=== PATIENT | male | born 1980 | race Caucasian/White ===

== ENCOUNTER 2017-01-11 17:58 | Emergency (ER) | payer MEDICAID, OTHER ==
[2017-01-11] MEDS ORDERED: chlordiazePOXIDE 25 MG CAP PO ONE (18:22)
--- NOTE | 2017-01-11 18:22 | EDPHY ---
H & P Stated Complaint: CI-last drink 0200, whiskey and beer, wants detox. Source: Patient Exam Limitations: No limitations - Personal History Current Tetanus/Diphtheria Vaccine: Unsure Current Tetanus Diphtheria and Acellular Pertussis (TDAP): Unsure - Medical/Surgical History Hx Asthma: No Hx Chronic Respiratory Disease: No Hx Diabetes: No Hx Cardiac Disease: No Hx Renal Disease: No Hx Cirrhosis: No Hx Alcoholism: Yes Hx HIV/AIDS: No Hx Splenectomy or Spleen Trauma: No Other PMH: [facility] Ena Singh. Hep C-treated 2013. Time Seen by Provider: 01/11/17 18:21 HPI/ROS: CHIEF COMPLAINT: requesting detox HISTORY OF PRESENT ILLNESS: 36-year-old male presents emergency department requesting detox from alcohol. Patient reports his last drink was at 2:00 a.m. he states he lives in [place] and took a bus to [place] while intoxicated. He states he drinks " a lot " of whiskey daily. Pt denies drug use. He reports feels nauseated and shaky. Patient denies history of alcohol withdrawal seizures. He reports he has been drinking for 16 years, longest time of sobriety is 1.5 months. Patient denies chest pain or shortness of breath. REVIEW OF SYSTEMS: A comprehensive 10 point review of systems is otherwise negative aside from elements mentioned in the history of present illness. (Latonya Harvey) - Physical Exam Exam: Physical Exam Gen: Alert and Oriented, NAD HEENT: PERRL, moist mucous membranes NECK: no meningismus CV: Tachycardic rate and regular rhythm PULM: CTAB, no wheezes ABDOMEN: soft, non tender to palpation, BS present BACK: No CVA tenderness NEURO: Neurologically grossly intact, no tongue fasciculations, no tremors, normal gait EXTREMITIES: normal appearing SKIN: no rash or break in skin on exposed skin PSYCH: answers questions appropriately. (Latonya Harvey) Constitutional: Initial Vital Signs Temperature (C) 36.3 C 01/11/17 18:01 Heart Rate 112 H 01/11/17 18:01 Respiratory Rate 18 01/11/17 18:01 Blood Pressure 170/108 H 01/11/17 18:01 O2 Sat (%) 96 01/11/17 18:01 O2 Delivery Mode Room Air Allergies/Adverse Reactions: No Known Allergies Allergy (Unverified 01/11/17 18:05) Home Medications: Medication Instructions Recorded Susan 01/11/17 Aicha 01/11/17 Medical Decision Making ED Course/Re-evaluation: 36-year-old male presents requesting detox for alcohol. Last drink was 16 hours ago. Patient reports feeling nauseous and tremulous. No history of alcohol withdrawal seizures. Patient has no evidence of delirium tremens, he has a normal gait. He was given 50 mg of Librium in the emergency department and will be sent to the [facility] with a Librium prepack. ( Latonya Harvey) - Data Points Medications Given: Discontinued Medications Chlordiazepoxide (Librium 25 Mg Prepack#6) 1 btl TAKEHOME EDNOW ONE Stop: 01/11/17 19:01 Last Admin: 01/11/17 19:19 Dose: 1 btl Chlordiazepoxide HCl (Librium) 50 mg PO EDNOW ONE Stop: 01/11/17 18:23 Last Admin: 01/11/17 18:28 Dose: 50 mg Departure - Departure Disposition: Home, Routine, Self-Care Clinical Impression: Alcohol dependence Qualifiers: Substance use status: uncomplicated Qualified Code(s): F10.20 - Alcohol dependence, uncomplicated Condition: Good Instructions: Chlordiazepoxide (By mouth), Alcohol Withdrawal (ED), Alcohol Dependence (ED) Additional Instructions: Go to the addiction recovery center. Referrals: [facility],. [Clinic] - Follow Up Only If Needed
[2017-01-11] MEDS ORDERED: CHLORDIAZEPOXIDE 25MG PREPK#6 BTL TAKEHOME ONE (19:00)
[2017-01-11 19:15] VITALS: BP 164/101; PULSE 93; RESP 16; TEMP 97.7; O2SAT 95
== END 2017-01-11 19:26 | disposition home or self-care (01) ==
DX: F10.20 Alcohol dependence, uncomplicated (principal)

== ENCOUNTER 2017-04-26 22:22 | Emergency (ER) | payer MEDICAID, OTHER ==
[2017-04-26 22:33] VITALS: TEMP 97.9
[2017-04-26] MEDS ORDERED: LORazepam 2 MG/ML INJ IVP ONE (22:49)
[2017-04-26] MEDS ORDERED: NS 1,000 ML IV ONE (22:49)
--- NOTE | 2017-04-26 22:49 | EDPHY ---
H & P Stated Complaint: Alcohol Withdrawal- came from [facility]. Tremors, chills. HPI/ROS: HPI CHIEF COMPLAINT: Alcohol withdrawal HISTORY OF PRESENT ILLNESS: This patient very pleasant 36-year-old male, presents emergency room from the [facility], and states that he went there to detox from alcohol his last drink was at noon today. Patient reports to me that he wants to go through detox. He was sent here to receive medications. Upon arrival he is noted to be tachycardic in the 130s and slightly tremulous. He is not hallucinating. He has never had a seizure. He denies any focal complaints. Past Medical History: Polysubstance abuse Past Surgical History: No recent surgery Social History: Daily alcohol use, cocaine and methamphetamine Family History: Noncontributory ROS REVIEW OF SYSTEMS: A comprehensive 10 point review of systems is otherwise negative aside from elements mentioned in the history of present illness. Exam Constitutional appears anxious triage nursing summary reviewed, vital signs reviewed, awake/alert. Eyes normal conjunctivae and sclera, EOMI, PERRLA. HENT normal inspection, atraumatic, moist mucus membranes, no epistaxis, neck supple/ no meningismus, no raccoon eyes. Respiratory clear to auscultation bilaterally, normal breath sounds, no respiratory distress, no wheezing. Cardiovascular tachycardic, regular rhythm, no murmur, no edema, distal pulses normal. Gastrointestinal soft, non-tender, no rebound, no guarding, normal bowel sounds, no distension, no pulsatile mass. Genitourinary no CVA tenderness. Musculoskeletal no midline vertebral tenderness, full range of motion, no calf swelling, no tenderness of extremities, no meningismus, good pulses, neurovascularly intact. Skin pink, warm, & dry, no rash, skin atraumatic. Neurologic awake, alert and oriented x 3, AAOx3, moves all 4 extremities equally, motor intact, sensory intact, CN II-XII intact, normal cerebellar, normal vision, normal speech. With arm extension slightly tremulous. Psychiatric normal mood/affect. Heme/Lymph/Immune no lymphadenopathy. Differential Diagnosis: Includes but is not limited to in a particular order acute alcohol withdrawal, electrolyte disturbance, dehydration, anxiety Medical Decision Making: This patient IV establishment basic blood work, IV fluid bolus, 2 mg IV Ativan to help with his tachycardia withdrawal. Once under control will hopefully get him to detox with Librium. Re-evaluation: 1224AM: Patient exam that time. He is feeling much better after multiple rounds of IV Ativan. He is no longer tremulous. His heart rate is improved. He would like to go to detox. Librium provided here 25 mg p.o. as well as Librium prescription. Heart rate down to 112. Return precautions discussed. Source: Patient - Personal History Current Tetanus Diphtheria and Acellular Pertussis (TDAP): Unsure - Medical/Surgical History Hx Asthma: No Hx Chronic Respiratory Disease: No Hx Diabetes: No Hx Cardiac Disease: No Hx Renal Disease: No Hx Cirrhosis: No Hx Alcoholism: Yes Hx HIV/AIDS: No Hx Splenectomy or Spleen Trauma: No Other PMH: [facility] Ena Singh. Hep C-treated 2013. Alcohol withdrawal - Social History Smoking Status: Heavy smoker Constitutional: Initial Vital Signs Temperature (C) 36.6 C 04/26/17 22:31 Heart Rate 135 H 04/26/17 22:31 Respiratory Rate 24 H 04/26/17 22:31 Blood Pressure 159/106 H 04/26/17 22:31 O2 Sat (%) 96 04/26/17 22:31 O2 Delivery Mode Room Air Allergies/Adverse Reactions: No Known Allergies Allergy (Verified 04/26/17 22:30) Home Medications: Medication Instructions Recorded Susan 01/11/17 Aicha 01/11/17 Medical Decision Making - Data Points Laboratory Results: Laboratory Results 04/26/17 23:00 04/26/17 23:00 04/26/17 04/26/17 23:00 23:00 WBC 11.99 10^3/uL H 10^3/uL (3.80-9.50) RBC 5.27 10^6/uL 10^6/uL (4.40-6.38) Hgb 16.2 g/dL g/dL (13.7-17.5) Hct 45.2 % % (40.0-51.0) MCV 85.8 fL fL (81.5-99.8) MCH 30.7 pg pg (27.9-34.1) MCHC 35.8 g/dL g/dL (32.4-36.7) RDW 13.6 % % (11.5-15.2) Plt Count 311 10^3/uL 10^3/uL (150-400) MPV 10.0 fL fL (8.7-11.7) Neut % (Auto) 77.0 % H % (39.3-74.2) Lymph % (Auto) 16.7 % % (15.0-45.0) [place] % (Auto) 5.0 % % (4.5-13.0) Eos % (Auto) 0.5 % L % (0.6-7.6) Baso % (Auto) 0.4 % % (0.3-1.7) Nucleat RBC Rel Count 0.0 % % (0.0-0.2) Absolute Neuts (auto) 9.23 10^3/uL H 10^3/uL (1.70-6.50) Absolute Lymphs (auto) 2.00 10^3/uL 10^3/uL (1.00-3.00) Absolute Monos (auto) 0.60 10^3/uL 10^3/uL (0.30-0.80) Absolute Eos (auto) 0.06 10^3/uL 10^3/uL (0.03-0.40) Absolute Basos (auto) 0.05 10^3/uL 10^3/uL (0.02-0.10) Absolute Nucleated RBC 0.00 10^3/uL 10^3/uL (0-0.01) Immature Gran % 0.4 % % (0.0-1.1) Immature Gran # 0.05 10^3/uL 10^3/uL (0.00-0.10) Sodium 145 mEq/L H mEq/L (134-144) Potassium 4.5 mEq/L mEq/L (3.5-5.2) Chloride 104 mEq/L mEq/L (97-110) Carbon Dioxide 24 mEq/l mEq/l (22-31) Anion Gap 17 mEq/L H mEq/L (8-16) BUN 17 mg/dL mg/dL (7-23) Creatinine 1.0 mg/dL mg/dL (0.7-1.3) Estimated GFR > 60 Glucose 94 mg/dL mg/dL (70-100) Calcium 10.0 mg/dL mg/dL (8.5-10.4) Ethyl Alcohol < 10 mg/dL mg/dL (0-10) Medications Given: Discontinued Medications Chlordiazepoxide (Librium 25 Mg Prepack#6) 1 btl TAKEHOME EDNOW ONE Stop: 04/26/17 22:53 Last Admin: 04/26/17 23:01 Dose: 1 btl Chlordiazepoxide HCl (Librium) 25 mg PO EDNOW ONE Stop: 04/26/17 22:53 Last Admin: 04/26/17 23:01 Dose: 25 mg Sodium Chloride (Ns) 1,000 mls @ 0 mls/hr IV EDNOW ONE; Wide Open PRN Reason: Protocol Stop: 04/26/17 22:50 Last Admin: 04/26/17 23:00 Dose: 1,000 mls Lorazepam (Ativan Injection) 2 mg IVP EDNOW ONE Stop: 04/26/17 22:50 Last Admin: 04/26/17 23:01 Dose: 2 mg Lorazepam (Ativan Injection) 1 mg IVP EDNOW ONE Stop: 04/27/17 00:26 Last Admin: 04/27/17 00:31 Dose: 1 mg Departure - Departure Disposition: Home, Routine, Self-Care Clinical Impression: Alcohol withdrawal Qualifiers: Complication of substance-induced condition: uncomplicated Qualified Code(s): F10.230 - Alcohol dependence with withdrawal, uncomplicated Condition: Good Instructions: Chlordiazepoxide/Clidinium (By mouth), Alcohol Withdrawal (ED) Referrals: UNKNOWN,UNKNOWN [Other] - As per Instructions
[2017-04-26] MEDS ORDERED: chlordiazePOXIDE 25 MG CAP PO ONE (22:52)
[2017-04-26] MEDS ORDERED: CHLORDIAZEPOXIDE 25MG PREPK#6 BTL TAKEHOME ONE (22:52)
[2017-04-26 23:15] LABS: PLATELET COUNT 311 10^3/uL (150-400)
[2017-04-27] MEDS ORDERED: LORazepam 2 MG/ML INJ IVP ONE (00:25)
[2017-04-27 00:36] VITALS: BP 148/98; PULSE 120; RESP 16; O2SAT 94
== END 2017-04-27 00:56 | disposition home or self-care (01) ==
DX: F10.230 Alcohol dependence with withdrawal, uncomplicated (principal); F17.200 Nicotine dependence, unspecified, uncomplicated; E86.9 Volume depletion, unspecified
CPT/HCPCS: 96374; G0480; J2060